=== PATIENT | female | born 1960 | race African-American/Black ===

== ENCOUNTER 2019-06-22 08:53 | Emergency (ER) | payer SELFPAY ==
[~2019-06-22] VITALS: Ht 154.9 cm; Wt 72.0 kg
[2019-06-22 09:12] VITALS: BP 102/68
[2019-06-22] MEDS ORDERED: KETOROLAC 60MG/2ML VIAL IM ONE (09:45)
== END 2019-06-22 10:38 | disposition home or self-care (01) ==
LOC: ER 10:15
DX: M54.10 Radiculopathy, site unspecified (principal)
CPT/HCPCS: 99282